=== PATIENT | female | born 1985 | race Two or more races ===

== ENCOUNTER → 2021-02-21 14:29 | Emergency (ER) | payer MEDICAID, OTHER ==
[~2021-02-21] VITALS: Ht 170.2 cm; Wt 93.0 kg
[~2021-02-21 14:29] MED LIST: traMADol HCL 50 MG TAB PO ONE
[2021-02-21 15:05] VITALS: BP 142/92
== END | disposition home or self-care (01) ==
LOC: ER 14:29
DX: K08.89 Other specified disorders of teeth and supporting structures (principal); I10 Essential (primary) hypertension; E11.9 Type 2 diabetes mellitus without complications